=== PATIENT | female | born 1970 | race Caucasian/White ===

== ENCOUNTER 2017-01-18 14:49 | Emergency (ER) | payer SELFPAY ==
[~2017-01-18] VITALS: Ht 170.2 cm; Wt 75.8 kg
[2017-01-18 15:13] VITALS: BP 144/81; PULSE 82; RESP 18; TEMP 98.3; O2SAT 97
--- NOTE | 2017-01-18 15:13 | PD ---
HPI Chief Complaint: rectal bleeding Time Seen by Provider: 15:02 Travel History International Travel<30 days: No Contact w/Intl Traveler<30days: No Traveled to known affect area: No History of Present Illness HPI The patient was seen and examined in the presence of the nurse. This patient complains of some rectal bleeding. She had small amounts of bright red blood per rectum. Duration was 2 days. It occurred on Wednesday and Wednesday but she did not have any today which is Wednesday. No history of rectal bleeding. Takes no blood thinners. Drinks no alcohol. No presyncopal symptoms. No alleviating factors. Symptoms severity is mild. PFSH Social History Alcohol Use: No Tobacco Use: No Substance Use: No Allergies-Medications (Allergen,Severity, Reaction): Coded Allergies: Aspirin (Verified Allergy, Severe, Anaphylaxis, 01/18/17) Diclofenac (Verified Allergy, Severe, Anaphylaxis, 01/18/17) Etodolac (Verified Allergy, Severe, Anaphylaxis, 01/18/17) Fenoprofen (Verified Allergy, Severe, Anaphylaxis, 01/18/17) Ibuprofen (Verified Allergy, Severe, Anaphylaxis, 01/18/17) Indomethacin (Verified Allergy, Severe, Anaphylaxis, 01/18/17) Ketoprofen (Verified Allergy, Severe, Anaphylaxis, 01/18/17) Ketorolac (Verified Allergy, Severe, Anaphylaxis, 01/18/17) Nabumetone (Verified Allergy, Severe, Anaphylaxis, 01/18/17) Naproxen (Verified Allergy, Severe, Anaphylaxis, 01/18/17) Oxaprozin (Verified Allergy, Severe, Anaphylaxis, 01/18/17) Piroxicam (Verified Allergy, Severe, Anaphylaxis, 01/18/17) Tartrazine (FD&C Yellow #5) (Verified Allergy, Unknown, Anaphylaxis, ) Review of Systems General / Constitutional: No: Fever Eyes: No: Visual changes HENT: No: Headaches Cardiovascular: No: Chest Pain or Discomfort Respiratory: No: Shortness of Breath Gastrointestinal: Positive: Hematochezia, No: Abdominal Pain Genitourinary: No: Dysuria Musculoskeletal: No: Pain Skin: No Rash Neurologic: No: Weakness Psychiatric: No: Depression Endocrine: No: Polydipsia Hematologic/Lymphatic: No: Easy Bruising Physical Exam Narrative GENERAL: Well-nourished, well-developed patient in no apparent distress. SKIN: Focused skin assessment reveals no rash and nodules. Skin is Warm and dry. HEAD: Atraumatic. Normocephalic. EYES: Pupils equal and round. No scleral icterus. No injection or drainage. ENT: No nasal bleeding or discharge. Mucous membranes pink and moist. NECK: Trachea midline. No JVD. CARDIOVASCULAR: Regular rate and rhythm. No murmur appreciated. RESPIRATORY: No accessory muscle use. Clear to auscultation. Breath sounds equal bilaterally. GASTROINTESTINAL: Abdomen soft, non-tender, nondistended. Hepatic and splenic margins not palpable. MUSCULOSKELETAL: No obvious deformities. No clubbing. No cyanosis. No edema. NEUROLOGICAL: Awake and alert. No obvious cranial nerve deficits. Motor grossly within normal limits. Normal speech. PSYCHIATRIC: Appropriate mood and affect; insight and judgment normal. Rectal: No external hemorrhoid or fissure. Data Data Last Documented VS Vital Signs Date Time Temp Pulse Resp B/P Pulse Ox O2 Delivery O2 Flow Rate FiO2 01/18/17 15:13 98.3 82 18 144/81 97 Orders Iv Access Insert/Monitor (01/18/17 15:08) Complete Blood Count With Diff (01/18/17 15:08) Labs Laboratory Tests Test 01/18/17 15:15 White Blood Count 7.1 TH/MM3 Red Blood Count 4.40 MIL/MM3 Hemoglobin 13.6 GM/DL Hematocrit 41.1 % Mean Corpuscular Volume 93.4 FL Mean Corpuscular Hemoglobin 30.9 PG Mean Corpuscular Hemoglobin 33.0 % Concent Red Cell Distribution Width 11.9 % Platelet Count 299 TH/MM3 Mean Platelet Volume 7.1 FL Neutrophils (%) (Auto) 59.5 % Lymphocytes (%) (Auto) 34.2 % Monocytes (%) (Auto) 4.6 % Eosinophils (%) (Auto) 1.1 % Basophils (%) (Auto) 0.6 % Neutrophils # (Auto) 4.3 TH/MM3 Lymphocytes # (Auto) 2.4 TH/MM3 Monocytes # (Auto) 0.3 TH/MM3 Eosinophils # (Auto) 0.1 TH/MM3 Basophils # (Auto) 0.0 TH/MM3 CBC Comment DIFF FINAL Differential Comment MDM Medical Decision Making Medical Screen Exam Complete: Yes Emergency Medical Condition: Yes Medical Record Reviewed: Yes Differential Diagnosis AV malformation, diverticulosis, internal hemorrhoid Narrative Course I have reviewed the patient's electronic medical record. IV placed CBC is normal with hemoglobin of 13.6 Patient's exam and vital signs are normal Symptoms are minimal Stable for outpatient follow-up. I recommended primary care follow-up and GI follow-up to discuss colonoscopy If her bleeding become significantly worse or she becomes symptomatic she will return for reevaluation Diagnosis Primary Impression: Rectal bleeding Additional Instructions: Follow-up with primary care Follow up with GI physician to discuss colonoscopy Return for significant worsening Med/Other Pt SpecificInfo: Other Disposition: 01 DISCHARGE HOME Condition: Stable Seferino Durand MD Jan 18, 2017 15:13
[2017-01-18 15:20] LABS: AUTOMATED NEUTROPHIL # 4.3 TH/MM3 (1.8-7.7); BASOPHIL % 0.6 % (0.0-2.0); EOSINOPHIL # 0.1 TH/MM3 (0-0.4); EOSINOPHIL % 1.1 % (0.0-4.0); HEMATOCRIT 41.1 % (35.0-46.0); HEMO FLAGS DIFF FINAL; LYMPH % 34.2 % (9.0-44.0); LYMPHOCYTE # 2.4 TH/MM3 (1.0-4.8); MEAN CELL VOLUME 93.4 FL (80.0-100.0); MEAN CORPUSCULAR HEMOGLOBIN 30.9 PG (27.0-34.0); MONO % 4.6 % (0.0-8.0); NEUT % 59.5 % (16.0-70.0); PLATELET COUNT 299 TH/MM3 (150-450); RED CELL DISTRIBUTION WIDTH 11.9 % (11.6-17.2); WHITE BLOOD COUNT 7.1 TH/MM3 (4.0-11.0)
== END 2017-01-18 16:00 | disposition home or self-care (01) ==
LOC: PHED 14:49
DX: K62.5 Hemorrhage of anus and rectum (principal)
CPT/HCPCS: 85025; 99283